=== PATIENT | female | born 1975 | race Caucasian/White ===

== ENCOUNTER 2017-07-15 21:27 | Emergency (ER) | payer OTHER ==
[~2017-07-15] VITALS: Ht 172.7 cm; Wt 108.9 kg
--- NOTE | 2017-07-15 22:00 | NUR ---
42 YO FEMALE BB SELF. PATIENT IS ALERT AND ORIENTED X 3, C/O WINN, 10/10, WITH NAUSEA/ VOMIT. PATIENT AMBULATED TO ER BED, SKIN WARM AND DRY, RESP EVEN AND UNLABORED. AWAITING ORDERS FROM PROVIDER, WILL CONITNUE TO MONITOR
--- NOTE | 2017-07-15 22:42 | NUR ---
20G RIGHT AC IV STARTED, BLOOD SAMPLE OBTAINED AND SENT TO LAB
[2017-07-15] MEDS ORDERED: METOCLOPRAMIDE HCL 10 MG/2 ML VIAL ONE (22:50)
--- NOTE | 2017-07-15 22:57 | NUR ---
MEDICATED PT ORDERED
[2017-07-15] MEDS ORDERED: METOCLOPRAMIDE HCL 10 MG/2 ML VIAL IV ONE (23:00)
[2017-07-15] MEDS ORDERED: LIDOCAINE 4% PF AMPUL 40 MG/ML AMPUL ONE (23:13)
[2017-07-15] MEDS ORDERED: KETOROLAC TROMETHAMINE 15 MG/ML VIAL ONE (23:14)
[2017-07-15] MEDS ORDERED: IV NS 0.9% 1,000 ML BAG IV ONE (23:30)
[2017-07-15] MEDS ORDERED: KETOROLAC TROMETHAMINE INJ 30 MG/ML VIAL IV ONE (23:30)
[2017-07-16] MEDS ORDERED: LORAZEPAM 1 MG TABLET ONE (00:06)
[2017-07-16 00:29] VITALS: BP 132/79
[2017-07-16] MEDS ORDERED: LORAZEPAM 1 MG TABLET PO ONE (00:30)
[2017-07-16] MEDS ORDERED: HALOPERIDOL LACTATE INJ 5 MG/ML VIAL IM ONE (01:00)
[2017-07-16] MEDS ORDERED: HALOPERIDOL LACTATE INJ 5 MG/ML VIAL ONE (01:06)
--- NOTE | 2017-07-16 01:30 | NUR ---
PT NO LONGER IN [facility]. PT ELOPED FROM FACILITY. DR BAH NOTIFIED.
== END 2017-07-16 01:30 | disposition left against medical advice (07) ==
LOC: ER 21:30
DX: G43.909 Migraine, unspecified, not intractable, without status migrainosus (principal); Z98.890 Other specified postprocedural states; Z88.8 Allergy status to other drugs, medicaments and biological substances
CPT/HCPCS: A4606; J1630; J1885; J2765; J3490; J7030; J7050; Z7610

== ENCOUNTER → 2019-04-16 | Day surgery (SDC) | payer OTHER ==
[~2019-04-16] VITALS: Ht 172.7 cm; Wt 114.8 kg
[~2019-04-16] MED LIST: IOHEXOL-350 100 ML VIAL IV ONE; METOPROLOL TARTRATE INJ 5 MG/5 ML AMPUL ONE; NITROGLYCERIN 0.4 MG/TAB BOTTLE ONE; NITROGLYCERIN 4.9 GM SPRAY SL PRN
[2019-04-16] MEDS: METOPROLOL TARTRATE INJ 5 MG/5 ML AMPUL IVP PRN ×11 (14:08→14:53)
[2019-04-16 14:54] VITALS: BP 122/82
--- NOTE | 2019-04-16 15:00 | NUR ---
tolerated CTA heart at this time; denies CP or SOB; report given to EMT Abdullahi, off to [facility] per eduard/emt
== END | disposition home or self-care (01) ==
LOC: CT 13:47
PROVIDERS: ATTEND Nurse Practitioner Acute Care
DX: M77.8 Other enthesopathies, not elsewhere classified (principal); R07.9 Chest pain, unspecified
CPT/HCPCS: 75574; J3490 ×3; Q9967